=== PATIENT | female | born 1975 | race Caucasian/White ===

== ENCOUNTER 2019-08-25 17:30 | Emergency (ER) | payer BC ==
[2019-08-25 17:49] VITALS: O2SAT 99
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
[2019-08-25 18:15] VITALS: BP 120/75; PULSE 80
== END 2019-08-25 18:19 | disposition home or self-care (01) ==
LOC: ED 17:30
DX: S16.1XXA Strain of muscle, fascia and tendon at neck level, initial encounter (principal); S60.212A Contusion of left wrist, initial encounter; M54.2 Cervicalgia; S40.011A Contusion of right shoulder, initial encounter; V59.49XA Driver of pick-up truck or van injured in collision with other motor vehicles in traffic accident, initial encounter
CPT/HCPCS: 99284